=== PATIENT | male | born 1965 | race Caucasian/White ===

== ENCOUNTER 2020-07-04 14:31 | Outpatient (CLI) | payer OTHER | END 2020-07-04 23:59 | disposition home or self-care (01) | LOC: RT 14:31 | PROVIDERS: ATTEND Orthopaedic Surgery | DX: J98.11 Atelectasis (principal); K21.00 Gastro-esophageal reflux disease with esophagitis, without bleeding | CPT/HCPCS: 71046; 94010 ==